=== PATIENT | female | born 1955 | race Caucasian/White ===

== ENCOUNTER → 2017-12-30 | Day surgery (SDC) | payer OTHER ==
[~2017-12-30] MED LIST: Lactated Ringers 1,000 ML IV SCH; Propofol 200 MG/20 ML SDV IV ONE
--- NOTE | 2018-01-02 07:27 | OR ---
DATE OF OPERATION: 12/30/2017 PREOPERATIVE DIAGNOSIS: ALTERED BOWEL HABITS. POSTOPERATIVE DIAGNOSIS: ALTERED BOWEL HABITS. SURGEON: Emil Nunez MD PROCEDURE: FULL-LENGTH COLONOSCOPY WITH RANDOM BIOPSIES X5. 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 COMPLICATIONS: None. SPECIMEN: Random biopsies x5 from right colon to rectum. FINDINGS: 1. Full-length colonoscopy. 2. Extremely tortuous colon. RECOMMENDATIONS: Medical followup pending path report. INDICATIONS: The patient has apparently been having some altered bowel habits at times in the form of diarrhea. Dr. Schulte sent her for colonoscopy. Last colonoscopy was many years ago. DESCRIPTION OF PROCEDURE: The patient was prepped and draped, placed in the left lateral decubitus position. A lubricated Olympus colonoscope was inserted and with a significant amount of difficulty, we ultimately advanced to the right colon. The patient is extremely tortuous throughout the whole colon. Many areas of colon were folded back on another and this persisted from the sigmoid all the way through transverse. Once we were able to trespass the hepatic flexure, we were able to slide the scope down deep into the right colon. I was able to abut next to the ileocecal valve. I could not get the cecal pouch itself to open. It appeared to show no gross abnormalities, but the cecal pouch itself was difficult to visualize as the bowel was closed up and folded in that area as well. Upon withdrawal, throughout the whole length of the colon, I could find no polyps, mass, ulceration, or bleeding sites. No vascular abnormalities or obvious signs of colitis. There were no significant diverticula. I did do random biopsies from the right colon to the rectal vault x5. Retroflexion of the scope in the rectum showed no perianal lesions. Air was suctioned. Scope was removed without complication. IDA/MARLENY /[id number]
== END ==
LOC: CC.SDS 09:54
PROVIDERS: ATTEND Family Medicine
DX: R19.7 Diarrhea, unspecified (principal); K56.2 Volvulus
CPT/HCPCS: 45380; J2704; J7120